=== PATIENT | female | born 1975 | race Hispanic/Latino ===

== ENCOUNTER 2022-12-29 21:56 | Inpatient (IN) | payer OTHER ==
[~2022-12-29] VITALS: Ht 165.1 cm; Wt 61.9 kg
[2022-12-29] MEDS ORDERED: SODIUM CHLORIDE 0.9% 1000ML 1,000 ML IV STA ×3 (22:37→22:41)
[2022-12-29] MEDS ORDERED: SODIUM CHLORIDE 0.9% 1000ML 1,000 ML ONE ×2 (22:37→23:12)
[2022-12-29] MEDS ORDERED: ONDANSETRON HCL INJ 2MG/ML 2ML 2 MG/ML VIAL IV STA (23:17)
[2022-12-29] MEDS ORDERED: KETOROLAC TROMETHAMINE 30 MG/ML VIAL IV STA (23:17)
[2022-12-29] MEDS ORDERED: FAMOTIDINE 20 MG/2 ML VIAL IV STA (23:18)
[2022-12-29] MEDS ORDERED: KETOROLAC TROMETHAMINE 30 MG/ML VIAL ONE (23:20)
[2022-12-29] MEDS ORDERED: FAMOTIDINE 20 MG/2 ML VIAL IV ONE (23:20)
[2022-12-29] MEDS ORDERED: ONDANSETRON HCL INJ 2MG/ML 2ML 2 MG/ML VIAL ONE (23:20)
[2022-12-29] MEDS ORDERED: SODIUM CHLORIDE 0.9% 1000ML 1,000 ML IV SCH (23:30)
[2022-12-29] MEDS: SODIUM CHLORIDE 0.9% 1000ML 1,000 ML IV SCH (23:34)
[2022-12-30] VITALS (25 sets, daily range): BP systolic 107–140; BP diastolic 68–89; PULSE 99–120; RESP 12–25; TEMP 97.4–99.2; O2SAT 90–100
[2022-12-30] MEDS ORDERED: SODIUM CHLORIDE 0.9% 1000ML 1,000 ML ONE (00:02)
[2022-12-30 00:08] LABS: BASOPHILS # (AUTO) 0.1 (0.0-0.1); BASOPHILS % 1.2 % (0.0-1.0); EOSINOPHILS # (AUTO) 0.1 (0.0-0.4); EOSINOPHILS % 0.6 % (0.0-6.0); HEMOGLOBIN 14.2 g/dL (12.0-16.0); LYMPHOCYTES # (AUTO) 1.6 (1.0-3.2); LYMPHOCYTES % 15.1 % (18.0-39.1); MEAN CORPUSCULAR HEMOGLOBIN 32.1 pg (28-32); MEAN CORPUSCULAR HGB CONC 34.6 g/dL (31-35); MEAN CORPUSCULAR VOLUME 92.8 fL (81-99); MONOCYTES # (AUTO) 0.6 (0.2-0.8); MONOCYTES % 5.8 % (4.4-11.3); NEUTROPHILS # (AUTO) 8.3 (2.1-6.9); NEUTROPHILS % 76.5 % (38.7-80.0); PLATELET COUNT 270 x10e3/uL (140-360); RED BLOOD COUNT 4.42 x10e6/uL (3.6-5.1); RED CELL DISTRIBUTION WIDTH 12.9 % (11.7-14.4); WHITE BLOOD COUNT 10.83 x10e3/uL (4.8-10.8)
[2022-12-30] MEDS: SODIUM CHLORIDE 0.9% 1000ML 1,000 ML IV SCH ×4 (00:20→01:47)
[2022-12-30 00:28] LABS: ALANINE AMINOTRANSFERASE 14 IU/L (0-55); ALBUMIN 4.1 g/dL (3.5-5.0); ALBUMIN/GLOBULIN RATIO 1.1 (0.8-2.0); ALKALINE PHOSPHATASE 59 IU/L (40-150); BLOOD UREA NITROGEN 21 mg/dL (7-26); BUN/CREATININE RATIO 18 (6-25); CHLORIDE 103 mmol/L (98-107); CREATINE KINASE 67 IU/L (29-168); CREATININE, SERUM 1.16 mg/dL (0.57-1.11); GLUCOSE 217 mg/dL (74-118); SODIUM 130 mmol/L (136-145)
[2022-12-30 00:30] LABS: CARBON DIOXIDE 8 mmol/L (22-29)
[2022-12-30] MEDS ORDERED: DEXTROSE 5%/0.45% SOD CHL 1,000 ML IV SCH (01:15)
[2022-12-30] MEDS ORDERED: ONDANSETRON HCL INJ 2MG/ML 2ML 2 MG/ML VIAL IV PRN (01:15)
[2022-12-30] MEDS ORDERED: POTASSIUM CHLORIDE 20MEQ/100ML 200 ML IV PRN (01:15)
[2022-12-30] MEDS ORDERED: MAGNESIUM SULF 1GRAM/DEXTROSE 100 ML IV PRN (01:15)
[2022-12-30] MEDS ORDERED: INSULIN REGULAR, HUMAN 3ML VL 100 UNIT in SODIUM CHLORIDE 0.9% 100 ML IV SCH ×2 (01:15)
[2022-12-30] MEDS ORDERED: GUAIFENESIN/DEXTROMETHORPHAN LIQD 5 ML UDC PO PRN (03:15)
[2022-12-30] MEDS ORDERED: MELATONIN 3 MG TAB PO PRN (03:15)
[2022-12-30] MEDS ORDERED: METOPROLOL TARTRATE INJ 1 MG/ML VIAL IV PRN (03:15)
[2022-12-30] MEDS ORDERED: MAGNESIUM/ALUMINUM/SIMETHICONE 30 ML UDC PO PRN (03:15)
[2022-12-30] MEDS: TRAMADOL/APAP 37.5MG-325MG TAB PO PRN ×3 (04:15→20:49)
[2022-12-30] MEDS ORDERED: DEXTROSE 50% SYRINGE 50 ML IV ONE (07:12)
[2022-12-30] MEDS ORDERED: DEXTROSE 50% SYRINGE 50 ML IV PRN ×3 (07:15→13:00)
[2022-12-30 08:02] LABS: ANION GAP 19.3 mmol/L (8-16); BLOOD UREA NITROGEN 17 mg/dL (7-26); BUN/CREATININE RATIO 17 (6-25); CALCIUM 7.4 mg/dL (8.4-10.2); CHLORIDE 108 mmol/L (98-107); GLUCOSE 243 mg/dL (74-118); MAGNESIUM 1.7 MG/DL (1.3-2.1); POTASSIUM 3.3 mmol/L (3.5-5.1); SODIUM 129 mmol/L (136-145)
[2022-12-30 08:06] LABS: CARBON DIOXIDE < 5 mmol/L (22-29)
[2022-12-30 08:14] LABS: HIV 1&2 AB SCREEN NON-REACTIVE (NONREACTIVE)
[2022-12-30 08:19] LABS: ALANINE AMINOTRANSFERASE 12 IU/L (0-55); ALBUMIN 3.4 g/dL (3.5-5.0); ALKALINE PHOSPHATASE 48 IU/L (40-150); BILIRUBIN,DIRECT < 0.1 mg/dL (0.0-0.5)
[2022-12-30 08:40] LABS: THYROID STIMULATING HORMONE 0.672 uIU/mL (0.350-4.940)
[2022-12-30] MEDS ORDERED: INSULIN REGULAR, HUMAN 3ML VL 100 UNIT in SODIUM CHLORIDE 0.9% 99 ML IV SCH ×4 (09:00→13:00)
[2022-12-30] MEDS: MULTIVITAMINS/MINERALS TAB PO SCH (09:00)
[2022-12-30] MEDS: DOCUSATE SODIUM 100 MG CAP PO SCH ×2 (09:00→17:46)
[2022-12-30] MEDS: D5.45%NS/KCL 20MEQ 1,000 ML IV SCH ×2 (09:57→17:47)
[2022-12-30 15:29] LABS: CHOL/HDL RATIO 14.2 (3.0-3.6); CHOLESTEROL 413 MD/DL (0-199); HDL CHOLESTEROL 29 MG/DL (40-60)
[2022-12-30 15:51] LABS: TRIGLYCERIDES 1529 MG/DL (0-149)
[2022-12-30] MEDS: ENOXAPARIN SOD INJ 40 MG/0.4 ML SYR SC SCH (17:46)
[2022-12-30] MEDS: ACETAMINOPHEN 325 MG TAB PO PRN ×2 (17:55→20:00)
[2022-12-30 20:19] LABS: ANION GAP 12.5 mmol/L (8-16); CALCIUM 8.2 mg/dL (8.4-10.2); CREATININE, SERUM 1.01 mg/dL (0.57-1.11); MAGNESIUM 1.9 MG/DL (1.3-2.1); POTASSIUM 3.5 mmol/L (3.5-5.1)
[2022-12-30] MEDS ORDERED: INSULIN GLARGINE 100 UNITS/ML VIAL SQ SCH (21:00)
[2022-12-31] VITALS (24 sets, daily range): BP systolic 117–148; BP diastolic 69–93; PULSE 90–108; RESP 0–17; TEMP 99–99.1; O2SAT 99–100
[2022-12-31] MEDS: KETOROLAC TROMETHAMINE 30 MG/ML VIAL IM PRN ×3 (01:51→19:59)
[2022-12-31] MEDS: D5.45%NS/KCL 20MEQ 1,000 ML IV SCH ×3 (03:04→20:25)
[2022-12-31] MEDS: TRAMADOL/APAP 37.5MG-325MG TAB PO PRN ×2 (05:44→13:13)
[2022-12-31 06:12] LABS: ANION GAP 11.3 mmol/L (8-16); CALCIUM 8.1 mg/dL (8.4-10.2); CREATININE, SERUM 0.79 mg/dL (0.57-1.11); MAGNESIUM 1.9 MG/DL (1.3-2.1); POTASSIUM 3.3 mmol/L (3.5-5.1)
[2022-12-31] MEDS: MULTIVITAMINS/MINERALS TAB PO SCH (08:12)
[2022-12-31] MEDS: MUPIROCIN 2% OINT 22 GM TUBE TOP SCH ×2 (08:12→16:40)
[2022-12-31] MEDS: DOCUSATE SODIUM 100 MG CAP PO SCH ×2 (08:12→16:42)
[2022-12-31] MEDS: INSULIN LISPRO 100 UNIT/1 ML 3ML VIAL SQ SCH ×3 (16:38→20:59)
[2022-12-31] MEDS: ENOXAPARIN SOD INJ 40 MG/0.4 ML SYR SC SCH (16:42)
[2022-12-31] MEDS ORDERED: INSULIN GLARGINE 100 UNITS/ML VIAL SQ SCH (21:00)
[2023-01-01] VITALS (21 sets, daily range): BP systolic 126–154; BP diastolic 74–105; PULSE 96–123; RESP 10–24; TEMP 98.4–99.1; O2SAT 100
[2023-01-01] MEDS: D5.45%NS/KCL 20MEQ 1,000 ML IV SCH ×2 (00:15→13:38)
[2023-01-01] MEDS: KETOROLAC TROMETHAMINE 30 MG/ML VIAL IM PRN (02:10)
[2023-01-01 05:03] LABS: BASOPHILS # (AUTO) 0.1 (0.0-0.1); BASOPHILS % 1.1 % (0.0-1.0); EOSINOPHILS # (AUTO) 0.2 (0.0-0.4); EOSINOPHILS % 3.2 % (0.0-6.0); HEMATOCRIT 33.9 % (34.2-44.1); HEMOGLOBIN 12.6 g/dL (12.0-16.0); LYMPHOCYTES # (AUTO) 1.7 (1.0-3.2); LYMPHOCYTES % 32.6 % (18.0-39.1); MEAN CORPUSCULAR HEMOGLOBIN 33.4 pg (28-32); MEAN CORPUSCULAR HGB CONC 37.2 g/dL (31-35); MEAN CORPUSCULAR VOLUME 89.9 fL (81-99); MONOCYTES # (AUTO) 0.5 (0.2-0.8); MONOCYTES % 8.8 % (4.4-11.3); NEUTROPHILS # (AUTO) 2.8 (2.1-6.9); NEUTROPHILS % 53.2 % (38.7-80.0); PLATELET COUNT 206 x10e3/uL (140-360); RED BLOOD COUNT 3.77 x10e6/uL (3.6-5.1); RED CELL DISTRIBUTION WIDTH 12.7 % (11.7-14.4); WHITE BLOOD COUNT 5.24 x10e3/uL (4.8-10.8)
[2023-01-01 05:28] LABS: ALBUMIN/GLOBULIN RATIO 0.8 (0.8-2.0); ANION GAP 17.3 mmol/L (8-16); CALCIUM 8.4 mg/dL (8.4-10.2); CREATININE, SERUM 0.76 mg/dL (0.57-1.11); MAGNESIUM 1.8 MG/DL (1.3-2.1); PHOSPHORUS 2.2 MG/DL (2.3-4.7); POTASSIUM 3.3 mmol/L (3.5-5.1)
[2023-01-01] MEDS: TRAMADOL/APAP 37.5MG-325MG TAB PO PRN (07:03)
[2023-01-01] MEDS: INSULIN LISPRO 100 UNIT/1 ML 3ML VIAL SQ SCH ×4 (07:13→17:10)
[2023-01-01] MEDS: DOCUSATE SODIUM 100 MG CAP PO SCH ×2 (08:14→17:08)
[2023-01-01] MEDS: MULTIVITAMINS/MINERALS TAB PO SCH (08:14)
[2023-01-01] MEDS: MUPIROCIN 2% OINT 22 GM TUBE TOP SCH ×2 (08:14→17:09)
[2023-01-01] MEDS ORDERED: POTASSIUM CHLORIDE 20 MEQ TAB CR PO ONE (09:35)
[2023-01-01] MEDS ORDERED: DEXTROSE 50% SYRINGE 50 ML IV PRN (10:15)
[2023-01-01] MEDS ORDERED: INSULIN REGULAR, HUMAN 3ML VL 100 UNIT in SODIUM CHLORIDE 0.9% 99 ML IV SCH ×2 (10:45)
[2023-01-01 11:06] LABS: ABG HCO3 21 mmol/L (22-26); ABG PCO2 34 mmHg (35-45); ABG PO2 101 mmHg (80-105); ABG TCO2 22
[2023-01-01] MEDS ORDERED: ACETAMIN/BUTALBITAL/CAFFEINE TAB PO PRN (11:15)
[2023-01-01] MEDS: ALPRAZOLAM 0.5 MG TAB PO PRN ×2 (11:23→17:38)
[2023-01-01] MEDS: Morphine 2mg Syringe 2 MG/ML SYR IV PRN ×2 (11:24→17:38)
[2023-01-01] MEDS ORDERED: INSULIN LISPRO 100 UNIT/1 ML 3ML VIAL SQ SCH (17:00)
[2023-01-01] MEDS: ENOXAPARIN SOD INJ 40 MG/0.4 ML SYR SC SCH (17:08)
[2023-01-01 19:48] LABS: ANION GAP 17.9 mmol/L (8-16); CALCIUM 8.6 mg/dL (8.4-10.2); CREATININE, SERUM 0.78 mg/dL (0.57-1.11); POTASSIUM 3.9 mmol/L (3.5-5.1)
[2023-01-01] MEDS ORDERED: LANTUS 3ML100 UNITS/ SC (20:29)
[2023-01-01] MEDS ORDERED: HUMALOG100 UNIT/3 SC (20:29)
[2023-01-01] MEDS ORDERED: INSULIN GLARGINE 100 UNITS/ML VIAL SQ SCH (21:00)
== END 2023-01-01 20:45 | disposition home or self-care (01) | DRG 638 ==
LOC: FSED 22:20 → ERHOLD 12-30 01:17 → ICU 12-30 02:00
PROVIDERS: ADMIT Internal Medicine; ATTEND Internal Medicine
PROC: 4A033R1 Measurement of Arterial Saturation, Peripheral, Percutaneous Approach (ICD-10-PCS; principal; 2023-01-01)
DX: E10.10 Type 1 diabetes mellitus with ketoacidosis without coma (principal); E87.1 Hypo-osmolality and hyponatremia; Z79.4 Long term (current) use of insulin; T38.3X5A Adverse effect of insulin and oral hypoglycemic [antidiabetic] drugs, initial encounter; R00.0 Tachycardia, unspecified; G89.4 Chronic pain syndrome; R53.1 Weakness; E86.0 Dehydration; Z91.148 Patient's other noncompliance with medication regimen for other reason
CPT/HCPCS: 0223U; 36415; 36600; 71045; 74176; 80048; 80053; 80061; 80076; 81003; 82533; 82550; 82553; 82805; 82948; 83036; 83605; 83690; 83735; 84100; 84436; 84443; 84479; 84484; 85025; 85379; 87390; 87400; 93005; 99284; G0433; G0435; J1650; J1815; J1885; J2270; J2405; J7030; J7050; J7799